=== PATIENT | male | born 1970 | race Caucasian/White ===

== ENCOUNTER 2020-06-06 08:53 | Emergency (ER) | payer OTHER ==
[2020-06-06] MEDS ORDERED: Sodium Chloride 0.9% 10 ML Syringe FLUSH PRN (09:18)
[2020-06-06] MEDS ORDERED: diphenhydrAMINE 50 MG/ML SDV IVPUSH ONE (09:22)
[2020-06-06] MEDS ORDERED: Ketorolac 30 MG/ML SDV IVPUSH ONE (09:22)
[2020-06-06] MEDS ORDERED: Metoclopramide 10 MG/2 ML SDV IVPUSH ONE (09:22)
--- NOTE | 2020-06-06 10:00 | CT ---
Head CT Technique: Multiple axial sections through the brain were obtained. Intravenous contrast was not utilized. Reconstructed coronal and sagittal images were obtained. Comparison: No prior intracranial imaging is available. Findings: Ventricles along with basal cisterns and sulci over the convexities appear within normal limits for the patient's age. No abnormal parenchymal densities are seen. No evidence of intracranial hemorrhage. No midline shift or mass-effect is appreciated. Bone window settings were reviewed. The visualized mastoid sinuses and visualized paranasal sinuses show nothing acute. No acute calvarial abnormality is appreciated. Impression: 1. Nothing acute is seen on noncontrast head CT exam. Diagnostic code #1
--- NOTE | 2020-06-06 10:03 | CT ---
CT maxillofacial Technique: Multiple axial sections mostly through the paranasal sinuses were obtained. Reconstructed coronal and sagittal images were obtained. Findings: Very minimal mucosal thickening or small retention cyst is seen within the left maxillary sinus. Slight mucosal thickening is seen inferiorly within the right maxillary sinus. Right sphenoid sinus shows very minimal mucosal thickening. No fluid is seen within the paranasal sinuses. Right and left globes are symmetric. No retrobulbar abnormality is seen. No acute osseous finding is appreciated. Impression: 1. Slight sinus disease which is most likely chronic and very mild. 2. Nothing acute is appreciated on CT study of the maxillofacial structures. Diagnostic code #2
[2020-06-06] MEDS ORDERED: Fluorescein 1 MG Ophth Strip EYELF ONE (10:07)
--- NOTE | 2020-06-06 10:45 | EDM.PDOC ---
ED HPI GENERAL MEDICAL PROBLEM - General Chief Complaint: Headache Stated Complaint: HEADACHE ABOVE EYE Time Seen by Provider: 06/06/20 09:01 Source of Information: Reports: Patient History Limitations: Reports: No Limitations - History of Present Illness INITIAL COMMENTS - FREE TEXT/NARRATIVE: The patient presents with a headache. The headache comes and goes and it is behind the left eye and goes to his jaw at times. He has some swelling to the eyelid at times. He does say he gets headaches like this at times, but not this long. He has no numbness or weakness with it. He has no fever, chills, cough, chest pain, shortness of breath, abdominal pain, nausea or vomiting. He went to the walk in clinic and they thought he needed a CT of his head. Onset: Gradual Duration: Week(s): (1) Location: Reports: Head Quality: Reports: Sharp Severity: Moderate Improves with: Reports: None Worsens with: Reports: None Associated Symptoms: Reports: Headaches. Denies: Chest Pain, Cough, Fever/Chills, Nausea/Vomiting, Shortness of Breath Left Headache Pain Score (Numeric/FACES): 7 - Related Data Allergies Allergy/AdvReac Type Severity Reaction Status Date / Time ciprofloxacin [From Cipro] Allergy Mild Other Verified 06/06/20 09:12 Home Meds: Home Meds Amoxicillin 875 mg PO BID #20 tab 06/06/20 [Rx] Past Medical History HEENT History: Reports: Hard of Hearing Gastrointestinal History: Reports: Hemorrhoids Neurological History: Reports: Migraines - Infectious Disease History Infectious Disease History: Reports: Chicken Pox - Past Surgical History GI Surgical History: Reports: Colonoscopy Other GI Surgeries/Procedures: "band of internal hemorrhoids" Social & Family History - Tobacco Use Tobacco Use Status *Q: Former Tobacco User Used Tobacco, but Quit: Yes Month/Year Tobacco Last Used: 03/2002 - Caffeine Use Caffeine Use: Reports: Coffee, Soda - Recreational Drug Use Recreational Drug Use: No ED ROS GENERAL - Review of Systems Review Of Systems: See Below Constitutional: Reports: No Symptoms HEENT: Reports: Eye Pain Respiratory: Reports: No Symptoms Cardiovascular: Reports: No Symptoms Endocrine: Reports: No Symptoms GI/Abdominal: Reports: No Symptoms : Reports: No Symptoms Musculoskeletal: Reports: No Symptoms Neurological: Reports: Headache. Denies: Dizziness, Numbness, Weakness - Physical Exam Exam: See Below Exam Limited By: No Limitations General Appearance: Alert, No Apparent Distress Eye Exam: Bilateral Eye: EOMI, PERRL Ears: Normal External Exam Nose: Normal Inspection Head Exam: Atraumatic, Normocephalic Neck: Normal Inspection Respiratory/Chest: No Respiratory Distress, Lungs Clear, Normal Breath Sounds Cardiovascular: Regular Rate, Rhythm, No Edema, No Murmur GI/Abdominal: Soft, Non-Tender, No Organomegaly, No Mass Neuro Exam (Abbreviated): Alert, Oriented, No Motor/Sensory Deficits Course - Vital Signs Last Recorded V/S: Last Vital Signs Temp 96.9 F 06/06/20 09:01 Pulse 70 06/06/20 09:01 Resp 14 06/06/20 09:01 BP 185/112 H 06/06/20 09:01 Pulse Ox 99 06/06/20 09:01 - Orders/Labs/Meds Orders: Active Orders 24 hr Category Date Time Status Cardiac Monitoring [RC] . DIRECTED Care 06/06/20 09:19 Active Peripheral IV Care [RC] . DIRECTED Care 06/06/20 09:20 Active Sodium Chloride 0.9% [Saline Flush] Med 06/06/20 09:18 Active 10 ml FLUSH ASDIRECTED PRN Peripheral IV Insertion Adult [OM.PC] Stat Oth 06/06/20 09:18 Ordered Medication Orders Sodium Chloride (Sodium Chloride 0.9% 10 Ml Syringe) 10 ml FLUSH ASDIRECTED PRN PRN Reason: Keep Vein Open Last Admin: 06/06/20 09:29 Dose: 10 ml Documented by: CYNTHIA Labs: Laboratory Tests 06/06/20 06/06/20 06/06/20 Range/Units 09:20 09:20 09:20 WBC 6.31 (4.23-9.07) K/mm3 RBC 5.12 (4.63-6.08) M/mm3 Hgb 15.0 (13.7-17.5) gm/dl Hct 45.0 (40.1-51.0) % MCV 87.9 (79.0-92.2) fl MCH 29.3 (25.7-32.2) pg MCHC 33.3 (32.2-35.5) g/dl RDW Std Deviation 43.8 (35.1-43.9) fL Plt Count 221 (163-337) K/mm3 MPV 10.3 (9.4-12.3) fl Neut % (Auto) 70.5 H (34.0-67.9) % Lymph % (Auto) 21.2 L (21.8-53.1) % [place] % (Auto) 7.0 (5.3-12.2) % Eos % (Auto) 1.1 (0.8-7.0) Baso % (Auto) 0.0 L (0.1-1.2) % Neut # (Auto) 4.45 (1.78-5.38) K/mm3 Lymph # (Auto) 1.34 (1.32-3.57) K/mm3 [place] # (Auto) 0.44 (0.30-0.82) K/mm3 Eos # (Auto) 0.07 (0.04-0.54) K/mm3 Baso # (Auto) 0.00 L (0.01-0.08) K/mm3 ESR 3 (0-15) mm/hr Sodium 143 (136-145) mEq/L Potassium 3.8 (3.5-5.1) mEq/L Chloride 106 (98-107) mEq/L Carbon Dioxide 28 (21-32) mEq/L Anion Gap 12.8 (5-15) BUN 15 (7-18) mg/dL Creatinine 1.1 (0.7-1.3) mg/dL Est Cr Clr Drug Dosing 98.64 mL/min Estimated GFR (MDRD) > 60 (>60) mL/min BUN/Creatinine Ratio 13.6 L (14-18) Glucose 101 (74-106) mg/dL Calcium 8.1 L (8.5-10.1) mg/dL Total Bilirubin 0.7 (0.2-1.0) mg/dL AST 18 (15-37) U/L ALT 29 (16-63) U/L Alkaline Phosphatase 53 (46-116) U/L C-Reactive Protein 0.9 (<1.0) mg/dL Total Protein 6.9 (6.4-8.2) g/dl Albumin 3.9 (3.4-5.0) g/dl Globulin 3.0 gm/dL Albumin/Globulin Ratio 1.3 (1-2) Meds: Medications Generic Name Dose Route Start Last Admin Trade Name Freq PRN Reason Stop Dose Admin Sodium Chloride 10 ml 06/06/20 09:18 06/06/20 09:29 Sodium Chloride 0.9% 10 Ml Syringe FLUSH 10 ml ASDIRECTED PRN Administration Keep Vein Open Discontinued Medications Generic Name Dose Route Start Last Admin Trade Name Cort[place] PRN Reason Stop Dose Admin Diphenhydramine HCl 50 mg 06/06/20 09:22 06/06/20 09:29 Diphenhydramine 50 Mg/Ml Sdv IVPUSH 06/06/20 09:23 50 mg ONETIME ONE Administration Fluorescein Sodium 1 mg 06/06/20 10:07 06/06/20 10:17 Fluorescein 1 Mg Ophth Strip EYELF 06/06/20 10:08 1 mg ONETIME ONE Administration Ketorolac Tromethamine 30 mg 06/06/20 09:22 06/06/20 09:29 Ketorolac 30 Mg/Ml Sdv IVPUSH 06/06/20 09:23 30 mg ONETIME ONE Administration Metoclopramide HCl 10 mg 06/06/20 09:22 06/06/20 09:28 Metoclopramide 10 Mg/2 Ml Sdv IVPUSH 06/06/20 09:23 10 mg ONETIME ONE Administration - Re-Assessments/Exams Free Text/Narrative Re-Assessment/Exam: 06/06/20 10:43 I ordered an IV saline lock, toradol 30mg IV, benadryl 50mg IV, reglan 10mg IV, labs, CT of his head and maxillofacial. The CT of his head shows nothing acute. The CT of his maxillofacial bones shows slight sinus disease which is most likely chronic and very mild. Nothing acute is appreciated on CT study of the maxillofacial structures. His CBC and CMP look good. His ESR and CRP are normal. 06/06/20 10:57 I checked pressure in his eye and it was normal at 12. I also stained his eye with fluoress and there was no dendritic sign for shingles. I feel this could be some sinusitis. I will get him on some amoxicillin and he can continue his flonase. Departure - Departure Time of Disposition: 11:00 Disposition: Home, Self-Care 01 Condition: Good Clinical Impression: Sinusitis Qualifiers: Sinusitis location: maxillary Chronicity: acute Recurrence: non-recurrent Qualified Code(s): J01.00 - Acute maxillary sinusitis, unspecified Headache Qualifiers: Headache type: other headache syndrome Qualified Code(s): G44.89 - Other headache syndrome - Discharge Information *PRESCRIPTION DRUG MONITORING PROGRAM REVIEWED*: Not Applicable *COPY OF PRESCRIPTION DRUG MONITORING REPORT IN PATIENT BRIDGET: Not Applicable Prescriptions: Amoxicillin 875 mg PO BID #20 tab Referrals: PCP,None [Primary Care Provider] - Forms: ED Department Discharge Additional Instructions: Take the amoxicillin 2 times per day for 10 days. Keep taking the flonase. You may also try some claritin to help. Have your blood pressure rechecked after this clears up. Please return if you are worse. Sepsis Event Note (ED) - Evaluation Sepsis Screening Result: No Definite Risk - Focused Exam Vital Signs: Vital Signs Temp Pulse Resp BP Pulse Ox 06/06/20 09:01 96.9 F 70 14 185/112 H 99 - My Orders Last 24 Hours: My Active Orders 06/06/20 09:18 Sodium Chloride 0.9% [Saline Flush] 10 ml FLUSH ASDIRECTED PRN Peripheral IV Insertion Adult [OM.PC] Stat 06/06/20 09:19 Cardiac Monitoring [RC] . DIRECTED 06/06/20 09:20 Peripheral IV Care [RC] . DIRECTED - Assessment/Plan Last 24 Hours: My Active Orders 06/06/20 09:18 Sodium Chloride 0.9% [Saline Flush] 10 ml FLUSH ASDIRECTED PRN Peripheral IV Insertion Adult [OM.PC] Stat 06/06/20 09:19 Cardiac Monitoring [RC] . DIRECTED 06/06/20 09:20 Peripheral IV Care [RC] . DIRECTED
== END 2020-06-06 11:10 | disposition home or self-care (01) ==
LOC: JD.ED 08:53
DX: J01.00 Acute maxillary sinusitis, unspecified (principal); Z88.1 Allergy status to other antibiotic agents; Z87.891 Personal history of nicotine dependence
CPT/HCPCS: 36415; 70450; 70486; 80053; 85025; 85652; 86140; 96374; 96375; 99284; J1200; J1885; J2765